=== PATIENT | male | born 1970 | race Caucasian/White ===

== ENCOUNTER 2021-03-18 13:36 | Emergency (ER) | payer MEDICAID ==
[~2021-03-18] VITALS: Ht 177.8 cm; Wt 85.0 kg
[2021-03-18] MEDS ORDERED: ACETAMINOPHEN 500MG TABLET PO ONE (15:45)
[2021-03-18] MEDS ORDERED: HYDROCODONE/ACETAMINOPHEN 5/325MG TABLET PO ONE (15:45)
[2021-03-18 15:46] VITALS: BP 149/93
[2021-03-18] MEDS ORDERED: HYDR-4001 MT (19:05)
== END 2021-03-18 19:43 | disposition home or self-care (01) ==
LOC: ER 13:36
DX: S52.502A Unspecified fracture of the lower end of left radius, initial encounter for closed fracture (principal); W11.XXXA Fall on and from ladder, initial encounter; Y93.89 Activity, other specified; Y92.89 Other specified places as the place of occurrence of the external cause; Y99.8 Other external cause status
CPT/HCPCS: 29125; 71101; 73080; 73110; 73120; 99284